=== PATIENT | female | born 1990 | race Caucasian/White ===

== ENCOUNTER 2018-01-07 14:17 | Emergency (ER) | payer OTHER ==
[~2018-01-07] VITALS: Ht 152.4 cm; Wt 86.2 kg
[~2018-01-07 14:17] MED LIST: ACETAMINOPHEN-1 EAC1 PO; ACYCLOVIR 200200 MG PO; BIRTH CONTROL; CIPROFLOXACIN500 M1 PO; DERMOPLAST SPRA56 ML; FLAGYL500 MG; IBUPROFEN 600600 M1; IBUPROFEN 600600 M1 PO; LANSINOH 60 GM60 GM; NAPROSYN500 MG PO; NORCO 5-325 TA1 EACH PO; NORFLEX100 MG PO; PYRIDIUM200 MG PO; TUCKS MEDICATE1 EAC1; ULTRAM 50MG TAB50 MG PO; VEETIDS 250MG250 M1 PO
[2018-01-07 14:36] LABS: URINE BILIRUBIN NEGATIVE (Negative); URINE BLOOD NEGATIVE (Negative); URINE CLARITY CLEAR; URINE COLOR YELLOW; URINE GLUCOSE-RANDOM* NEGATIVE (Negative); URINE KETONES NEGATIVE (Negative); URINE LEUKOCYTES-REFLEX NEGATIVE (Negative); URINE NITRITE-REFLEX NEGATIVE (Negative); URINE PROTEIN (DIPSTICK) NEGATIVE (Negative); URINE SPECIFIC GRAVITY 1.025 (1.005-1.035); URINE UROBILINOGEN 0.2 E.U./dl (0.2-1.0)
== END 2018-01-07 15:47 | disposition home or self-care (01) ==
LOC: ER 14:17
PROVIDERS: Emergency Medicine
DX: R35.0 Frequency of micturition (principal); N89.8 Other specified noninflammatory disorders of vagina; Z87.891 Personal history of nicotine dependence

== ENCOUNTER 2022-01-09 17:27 | Emergency (ER) | payer BC ==
[~2022-01-09] VITALS: Ht 152.4 cm; Wt 90.7 kg
[2022-01-09 17:28] VITALS: BP 130/79
== END 2022-01-09 18:40 | disposition home or self-care (01) ==
LOC: ER 17:27
DX: M25.562 Pain in left knee (principal); F17.210 Nicotine dependence, cigarettes, uncomplicated; W01.0XXA Fall on same level from slipping, tripping and stumbling without subsequent striking against object, initial encounter; Y93.89 Activity, other specified; Y92.89 Other specified places as the place of occurrence of the external cause; Y99.8 Other external cause status